=== PATIENT | male | born 1960 | race Caucasian/White ===

== ENCOUNTER → 2018-01-01 | Outpatient (CLI) | payer OTHER ==
--- NOTE | 2018-01-01 15:23 | XR ---
EXAMINATION TYPE: XR lumbosacral spine min 4V DATE OF EXAM: 01/01/2018 CLINICAL HISTORY: Chronic back pain. Injury as a child. TECHNIQUE: Frontal, lateral, and oblique images of the lumbar spine are obtained. COMPARISON: None FINDINGS: There are 5 lumbar type vertebral bodies identified. There is a minimal retrolisthesis of L5 with respect to S1. Facet arthropathy seen at L4-S1. Small interosseous heights are present throu ghout the lumbar spine. Mild right-sided neural foraminal narrowing is seen at L4-L5 there is suspici on for minimal bilateral neural foraminal narrowing at L5-S1 bilaterally. No vertebral body height lo ss. The overlying soft tissue appears unremarkable. IMPRESSION: 1. No acute fracture is seen in the lumbar spine. 2. Minimal retrolisthesis of L5 on S1 is likely on a degenerative basis. 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
== END | disposition home or self-care (01) ==
LOC: RADXRMAIN 12:23
PROVIDERS: ATTEND Family Medicine
DX: M99.73 Connective tissue and disc stenosis of intervertebral foramina of lumbar region (principal); M43.17 Spondylolisthesis, lumbosacral region; M47.816 Spondylosis without myelopathy or radiculopathy, lumbar region
CPT/HCPCS: 72110